=== PATIENT | male | born 1990 | race Caucasian/White ===

== ENCOUNTER 2019-11-30 13:54 | Outpatient (RCR) | payer BC | END 2019-12-11 | disposition home or self-care (01) | LOC: WCC 13:54 | DX: R41.3 Other amnesia (principal); Z87.820 Personal history of traumatic brain injury; Z87.891 Personal history of nicotine dependence; F41.9 Anxiety disorder, unspecified; G47.00 Insomnia, unspecified; F32.9 Major depressive disorder, single episode, unspecified ==